=== PATIENT | female | born 1965 | race Caucasian/White ===

== ENCOUNTER 2017-08-21 12:26 | Emergency (ER) | payer BC ==
[2017-08-21 13:41] LABS: ALANINE AMINOTRANSFERASE 43 U/L (9-52); ALBUMIN 4.2 g/dL (3.5-5.0); ALKALINE PHOSPHATASE 113 U/L (38-126); ANION GAP 9 (5-19); ASPARTATE AMINO TRANSFERASE 30 U/L (14-36); BILIRUBIN,DIRECT 0.3 mg/dL (0.0-0.4); BILIRUBIN,TOTAL 0.5 mg/dL (0.2-1.3); BLOOD UREA NITROGEN 8 mg/dL (7-20); CALCIUM 9.3 mg/dL (8.4-10.2); CARBON DIOXIDE 25 mmol/L (22-30); CHLORIDE 106 mmol/L (98-107); CREATINE KINASE 73 U/L (30-135); GLUCOSE 93 mg/dL (75-110); POTASSIUM 4.1 mmol/L (3.6-5.0); SODIUM 139.9 mmol/L (137-145)
[2017-08-21 13:53] LABS: NT PRO BNP 42 pg/mL (5-900)
[2017-08-21 13:57] LABS: TROPONIN I < 0.012 ng/mL
--- NOTE | 2017-08-21 14:05 | RADIOLOGY REPORT (SQ) ---
EXAM DESCRIPTION: CHEST PA/LAT COMPLETED DATE/TIME: 08/21/2017 1:41 pm REASON FOR STUDY: SOB COMPARISON: None. EXAM PARAMETERS: NUMBER OF VIEWS: two views TECHNIQUE: Digital Frontal and Lateral radiographic views of the chest acquired. RADIATION DOSE: NA LIMITATIONS: none FINDINGS: LUNGS AND PLEURA: No opacities, masses or pneumothorax. No pleural effusion. MEDIASTINUM AND HILAR STRUCTURES: No masses or contour abnormalities. HEART AND VASCULAR STRUCTURES: Heart normal size. No evidence for failure. BONES: Osteopenic. No acute findings HARDWARE: None in the chest. OTHER: No other significant finding. IMPRESSION: NO SIGNIFICANT RADIOGRAPHIC FINDING IN THE CHEST. TECHNICAL DOCUMENTATION: JOB ID: [id number] [employer]- All Rights Reserved Reading location - IP/workstation name: [email or web address]
[2017-08-21 14:06] LABS: ABSOLUTE BASOPHILS # (AUTO) 0.1 10^3/uL (0.0-0.2); ABSOLUTE EOSINOPHILS # (AUTO) 0.2 10^3/uL (0.0-0.6); ABSOLUTE MONOCYTES (AUTO) 0.5 10^3/uL (0.1-1.4); ABSOLUTE NEUT (AUTO) 4.7 10^3/uL (1.7-8.2); BASOPHILS % (AUTO) 0.9 % (0-2); EOSINOPHILS % (AUTO) 2.2 % (0-6); HEMATOCRIT 43.4 % (36.0-47.0); HEMOGLOBIN 14.6 g/dL (12.0-15.5); LYMPHOCYTES % (AUTO) 26.9 % (13-45); MEAN CORPUSCULAR HEMOGLOBIN 31.3 pg (27.0-33.4); MEAN CORPUSCULAR HGB CONC 33.7 g/dL (32.0-36.0); MEAN CORPUSCULAR VOLUME 93 fl (80-97); MONOCYTES % (AUTO) 6.4 % (3-13); PLATELET COUNT 235 10^3/uL (150-450); RED BLOOD COUNT 4.68 10^6/uL (3.72-5.28); RED CELL DISTRIBUTION WIDTH 14.8 % (11.5-14.0); SEGMENTED NEUTROPHILS % (AUTO) 63.6 % (42-78); TOTAL CELLS COUNTED % (AUTO) 100 %; WHITE BLOOD COUNT 7.3 10^3/uL (4.0-10.5)
--- NOTE | 2017-08-21 14:26 | ER Document Report ---
ED General - General Chief Complaint: Dizziness Stated Complaint: DIZZY, SHORTNESS OF BREATH, BLOOD PRESSURE ISSUE Time Seen by Provider: 08/21/17 12:57 Notes: The patient is a 52-year-old female, past medical history hypertension, current smoker, presents with multiple complaints. Over the past several days, she has been feeling like her heart is racing. She is feeling mildly short of breath yesterday and went to [facility] where her blood pressure was 190/100. She has an appointment with her primary care physician this week to discuss starting blood pressure medications because of prior high values in the past, but she is not on any blood pressure medications currently. Patient is drinking a 32 ounce caffeinated drink in the emergency room and says that she is feeling like her heart is racing, but her heart rate is 72. She denies syncope, leg swelling , nausea, vomiting, hemoptysis, rash, back pain, chest pain or headache. TRAVEL OUTSIDE OF THE [place] IN LAST 30 DAYS: No - Related Data Allergies/Adverse Reactions: No Known Allergies Allergy (Verified 08/21/17 12:27) Past Medical History - General Information source: Patient - Social History Smoking Status: Current Every Day Smoker Family History: Reviewed & Not Pertinent Patient has suicidal ideation: No Patient has homicidal ideation: No Endocrine Medical History: Reports: Hx Hypothyroidism Renal/ Medical History: Denies: Hx Peritoneal Dialysis Psychiatric Medical History: Reports: Hx Depression Past Surgical History: Reports: Hx Appendectomy, Hx Orthopedic Surgery - Recently had pins placed in the right fourth and fifth fingers - Immunizations Hx Diphtheria, Pertussis, Tetanus Vaccination: Yes Review of Systems - Review of Systems Notes: REVIEW OF SYSTEMS: CONSTITUTIONAL: -fevers, -chills EENT: -eye pain, -difficulty swallowing, -nasal congestion CARDIOVASCULAR: -chest pain, -syncope, +palpitations RESPIRATORY: -cough, -SOB GASTROINTESTINAL: -abdominal pain, -nausea, -vomiting, -diarrhea GENITOURINARY: -dysuria, -hematuria MUSCULOSKELETAL: -back pain, -neck pain SKIN: -rash or skin lesions. HEMATOLOGIC: -easy bruising or bleeding. LYMPHATIC: -swollen, enlarged glands. NEUROLOGICAL: -altered mental status or loss of consciousness, -headache, - neurologic symptoms PSYCHIATRIC: -anxiety, -depression. ALL OTHER SYSTEMS REVIEWED AND NEGATIVE. Physical Exam - Vital signs Vitals: Temp Pulse Resp BP Pulse Ox 98.7 F 71 16 186/96 H 98 08/21/17 12:46 08/21/17 12:46 08/21/17 12:46 08/21/17 12:46 08/21/17 12:46 - Notes Notes: PHYSICAL EXAMINATION: GENERAL: Well-appearing, well-nourished and in no acute distress. HEAD: Atraumatic, normocephalic. EYES: Pupils equal round and reactive to light, extraocular movements intact, sclera anicteric, conjunctiva are normal. ENT: nares patent, oropharynx clear without exudates. Moist mucous membranes. NECK: Normal range of motion, supple without lymphadenopathy LUNGS: Breath sounds clear to auscultation bilaterally and equal. No wheezes rales or rhonchi. HEART: Regular rate and rhythm without murmurs ABDOMEN: Soft, nontender, normoactive bowel sounds. No guarding, no rebound. No masses appreciated. EXTREMITIES: Normal range of motion, no pitting or edema. No cyanosis. Strong distal pulses. NEUROLOGICAL: Cranial nerves grossly intact. Normal speech, normal gait. Normal sensory and motor exams. PSYCH: Normal mood, normal affect. SKIN: Warm, Dry, normal turgor, no rashes or lesions noted. Course - Re-evaluation Re-evalutation: Pt appears well. She is initially hypertensive, but after rest improves to 145/ 85 without any medications. Blood work is unremarkable, including a negative d- dimer due to the shortness of breath and dizziness that she was experiencing. EKG and chest x-ray did not show any concerning abnormalities. Patient is drinking a 32 ounce caffeinated drink in the emergency room and told her that this may be leading to feelings of her heart racing, even though her mechanical striper shows sinus rhythm at 72 without any concerning arrhythmias seen. Told her to try to cut down on her smoking and caffeine use and follow-up with her primary care physician as a rescheduled this week to discuss blood pressure management. - Vital Signs Vital signs: Temp Pulse Resp BP Pulse Ox 98.7 F 71 15 145/84 H 98 08/21/17 12:46 08/21/17 12:46 08/21/17 14:01 08/21/17 14:01 08/21/17 14:01 - Laboratory Result Diagrams: 08/21/17 13:10 08/21/17 13:10 Laboratory results interpreted by me: 08/21/17 13:10 RDW 14.8 H - Diagnostic Test Radiology reviewed: Image reviewed, Reports reviewed Radiology results interpreted by me: CXR: NAD - EKG Interpretation by Me EKG shows normal: Sinus rhythm, [place], Intervals, QRS Complexes, ST-T Waves When compared to previous EKG there are: No significant change Discharge - Discharge Clinical Impression: Palpitations Hypertension Qualifiers: Hypertension type: unspecified Qualified Code(s): I10 - Essential (primary) hypertension Condition: Stable Disposition: HOME, SELF-CARE Additional Instructions: Your blood pressure in the emergency room is 145/85. Have your blood pressure rechecked by your primary care physician to see if you need any blood pressure medications. Try to cut down on your caffeine intake. Palpitations (Irregular/Rapid Heartrate) Irregular or rapid heartbeat is called "palpitation." To diagnose the cause of palpitation, we have to "catch it in the act" with an EKG. Sinus Tachycardia: This is a rapid (but NORMAL) rhythm that can be due to fever, pain, anxiety, lack of sleep, over-exertion, or drugs. Cold medications, caffeine, and diet pills are particularly likely to cause tachycardia. Usually , all that's required is rest, reassurance, and avoiding caffeine, alcohol, nicotine, and unnecessary medicines. Paroxysmal Atrial Tachycardia (PAT): This abnormally rapid heartbeat is caused by a "short circuit" in the electrical system of the heart. It is not dangerous, unless other heart disease is present. These attacks of PAT may occur occasionally for years. Medication is available for treatment. Paroxysmal Atrial Fibrillation or Atrial Flutter: This is irregular electrical activity in the upper heart chamber. These abnormal rhythms often occur with valve disease or in hearts damaged by hardening of the arteries. These rhythms usually require further testing, for example a cardiac echo. Premature Beats: Extra beats occur more commonly after caffeine, nicotine , alcohol, cold pills, diet pills. Emotional stress or fatigue also provoke them. Extra beats are only dangerous when heart disease is present. They usually need no treatment. If they're frequent, or if evidence of heart disease develops, medication can be given to suppress them. If we were unable to "catch" the palpitations on EKG, you should try to get an EKG immediately if the symptoms begin again. Contact the physician at once if you develop persistent lightheadedness, shortness of breath, chest pain , or swelling of the ankles. DIZZINESS: Under normal circumstances, your sense of balance is controlled by a number of signals that your brain receives from several locations: Eyes. No matter what your position, visual signals help you determine where your body is in space and how it's moving. Sensory nerves. These are in your skin, muscles and joints. Sensory nerves send messages to your brain about body movements and positions. Inner ear. The organ of balance in your inner ear is the vestibular labyrinth. It includes loop-shaped structures (semicircular canals) that contain fluid and fine, hair-like sensors that monitor the rotation of your head. Near the semicircular canals are the utricle and saccule, which contain tiny particles called otoconia ([id number]). These particles are attached to sensors that help detect gravity and [id number] motion. Good balance depends on at least two of these three sensory systems working well. For instance, closing your eyes while washing your hair in the shower doesn't mean you'll lose your balance. Signals from your inner ear and sensory nerves help keep you upright. However, if your central nervous system can't process signals from all of these locations, if the messages are contradictory, or if the sensory systems aren't functioning properly, you may experience loss of balance. Dizziness may have a number of potential causes. These may include: Feeling of faintness (presyncope) "Presyncope" is the medical term for feeling faint and lightheaded without losing consciousness. Sometimes nausea, pale skin and a sense of dizziness accompany a feeling of faintness. Causes of presyncope include: Drop in blood pressure (orthostatic hypotension). A dramatic drop in your systolic blood pressure - the higher number in your blood pressure reading - may result in lightheadedness or a feeling of faintness. It can occur after sitting up or standing too quickly. Inadequate output of blood from the heart. Conditions such as partially blocked arteries (atherosclerosis), disease of the heart muscle (cardiomyopathy) , abnormal heart rhythm (arrhythmia) or a decrease in blood volume may cause inadequate blood flow from your heart. Lightheadedness and other kinds of dizziness Feeling lightheaded is the feeling of being "spaced out" or having the sensation of spinning inside your head. It can also give you the sensation that if your lightheadedness worsens, you might lose consciousness. Causes may include: Inner ear disorders. These abnormalities of your inner ear can lead to illusions of motion and make you feel like you're floating. Anxiety disorders. Certain anxiety disorders, such as panic attacks and a fear of leaving home or being in large, open spaces (agoraphobia), may cause lightheadedness. Hyperventilation. Abnormally rapid breathing that often accompanies anxiety disorders may make you feel lightheaded. NORMAL EXAM AND WORKUP: At this time, your examination and workup show no significant abnormality. No significant abnormal physical findings were noted. All laboratory, EKG, and imaging (x-ray, CT scans, ultrasound) studies that were ordered show no significant abnormality. Although your examination and all studies that were ordered showed no significant abnormal finding, there are no examinations and no studies that are 100% accurate. There is always the possibility that some abnormality could exist and not be detected with physical examination or within the limits and capabilities of laboratory and other studies. You should return or follow up as you were instructed on your visit today for further evaluation if your symptoms do not resolve. FOLLOW-UP CARE: If you have been referred to a physician for follow-up care, call the physician s office for an appointment as you were instructed or within the next two days. If you experience worsening or a significant change in your symptoms, notify the physician immediately or return to the Emergency Department at any time for re-evaluation. Forms: Elevated Blood Pressure, Smoking Cessation Education Referrals: VIDAL QUIROZ MD [ACTIVE STAFF] - Follow up as needed
[2017-08-21 14:28] VITALS: BP 145/84
--- NOTE | 2017-08-21 23:32 | EKG REPORT ---
SEVERITY:- BORDERLINE ECG - SINUS RHYTHM BORDERLINE T ABNORMALITIES, ANTERIOR LEADS : Confirmed by: Ousmane Mccormick 21-Aug-2017 23:31:30
== END 2017-08-21 14:29 | disposition home or self-care (01) ==
LOC: ER 12:26 → EEVIPCON 12:26 → ER 14:29
DX: R00.2 Palpitations (principal); I10 Essential (primary) hypertension; F17.200 Nicotine dependence, unspecified, uncomplicated
CPT/HCPCS: 36415; 71046; 80053; 82550; 83880; 84484; 85025; 85379; 93005; 93010; 99284